=== PATIENT | male | born 1995 ===

== ENCOUNTER 2017-08-19 08:34 | Inpatient (IN) | payer MEDICAID, OTHER ==
--- NOTE | 2017-08-19 08:39 | ED PDOC ---
Psych Transfer Clearance - Clearance Statement Clearance Statement: Reviewed vital signs, lab results and transfer papers. Patient clinically stable for psychiatric admission.
[2017-08-19 08:43] VITALS: BP 116/58; PULSE 93; TEMP 99.5; O2SAT 98
[2017-08-19] MEDS ORDERED: DiphenhydrAMINE 50 mg/ml Inj IM PRN (10:37)
[2017-08-19] MEDS ORDERED: Alum-Mag Hydrox-Simethicone Susp (30 mL) PO PRN (10:37)
[2017-08-19] MEDS ORDERED: Magnesium Hydroxide Susp 30 ml UD PO PRN (10:37)
--- NOTE | 2017-08-19 12:00 | PCM.BM ---
Treatment Plan Problems - Problems identified on initial assessmt Anxiety Date Initiated: 08/19/17 Time Initiated: 11:58 Assessment reference: HP NA Status: Active Priority: 1 Treatment assets and liabiliti Patient Assests: cooperative, educated, motivated, self-reliant, physically healthy, negotiates basic needs, cognitively intact Patient Liabilities: relationship conflicts, other (drinks alcohol few glasses at green party states triggered his anxiety) - Milieu Protocol Maintain good personal hygiene: daily Encourage regular showers, daily Remind patient to perform daily oral care, daily Assist patient to perform ADL's Maintain personal safety: every shift Educate patient to report safety concerns to staff, every shift Monitor environment for contraband/sharps Medication safety: Monitor for expected outcome, potential side effects: every shift, Assess barriers to learning: every shift, Assess readiness for medication education: every shift
[2017-08-19 13:08] VITALS: RESP 18
--- NOTE | 2017-08-19 14:23 | PCM.PSYCH ---
Initial Psychiatric Evaluation - Initial Psychiatric Evaluation Type of Admission: Voluntary Legal Status: Capacity Chief Complaint (in patient's own words): i HAVE BEEN HAVING SEVERE PANIC ATTACKS THAT I COULD NOT FUNCTION Patient's Reaction to Hospitalization: pt requested help History of Present Illness and Precipitating Events: pt without previous formal psychiatric treatment reported has been experiencing panic attacks since age 19. 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 he experienced an episode when he felt he would becuse of a heart attach , he came to ER seeking help pt reported depressed miood denied manic or psychotic symptoms Current Medications: Active Medications Generic Name Dose Route Start Last Admin Trade Name Freq PRN Reason Stop Dose Admin Acetaminophen 650 mg 08/19/17 10:37 Tylenol 325mg Tab PO Q4 PRN Pain, moderate (4-7) Al Hydrox/Mg Hydrox/Simethicone 30 ml 08/19/17 10:37 Maalox Plus 30 Ml PO Q4 PRN Dyspepsia Diphenhydramine HCl 50 mg 08/19/17 10:37 Benadryl IM Q6 PRN Extrapyramidal S/S Unable PO Diphenhydramine HCl 50 mg 08/19/17 10:37 Benadryl PO Q6 PRN Extrapyramidal Symptoms Escitalopram Oxalate 5 mg 08/19/17 10:45 Lexapro PO DAILY VENECIA Haloperidol 5 mg 08/19/17 10:37 Haldol PO Q4 PRN Agitation Haloperidol Lactate 5 mg 08/19/17 10:37 Haldol IM Q4 PRN Agitation, Unable to Take PO Lorazepam 2 mg 08/19/17 10:37 Ativan IM Q4 PRN Anxiety/Agitation,Unable PO Lorazepam 2 mg 08/19/17 10:37 Ativan PO Q4 PRN Anxiety/Agitation Magnesium Hydroxide 30 ml 08/19/17 10:37 Milk Of Magnesia PO HS PRN Constipation Past Psychiatric History - Past Psychiatric History Explanation of prior treatment: no hx of previous psychiatric treatment History of ETOH/Drug Use: denied Pertinent Medical Hx (Current Medical&Sleep Prob, Allergies): Allergies Allergy/AdvReac Type Severity Reaction Status Date / Time No Known Allergies Allergy Verified 08/19/17 08:36 Mental Status Examination - Personal Presentation Personal Presentation: Looks stated age - Affect Affect: Constricted, Depressed - Motor Activity Motor Activity: Psychomotor Retardation - Reliability in Providing Information Reliability in Providing Information: Fair - Speech Speech: Relevant - Mood Mood: Depressed, Anxious - Formal Thought Process Formal Thought Process: Circumstantial - Obsessions/Compulsions Obsessions: No Compulsions: No - Cognitive Functions Orientation: Person, Place, Situation Sensorium: Alert Attention/Concentration: Attentive Estimate of Intelligence: Average - Risk Risk: Diminished functioning - Strength & Assets Inventory Strength & Assets Inventory: Family support - Limitations Additional comments: financial problems DSM 5 DX - DSM 5 DSM 5 Diagnosis: panic disorder generalized anxiety disorder - Recommended/Plan of Treatment Treatment Recommendations and Plan of Treatment: pt will be started on lexapro 5mg daily CBT , supportive therapy Prognosis: fair Discharge Plan and Discharge Criteria: pt mental status stable
== END 2017-08-19 16:10 | disposition home or self-care (01) | DRG 880 ==
LOC: H.ER 08:34 → H.PSYCH 08:39 → H.ER 09:03
PROVIDERS: ADMIT Psychiatry & Neurology Psychiatry; ATTEND Psychiatry & Neurology Psychiatry
PROC: GZ58ZZZ Individual Psychotherapy, Cognitive-Behavioral (ICD-10-PCS; principal; 2017-08-19)
PROC: GZ56ZZZ Individual Psychotherapy, Supportive (ICD-10-PCS; 2017-08-19)
DX: F41.0 Panic disorder [episodic paroxysmal anxiety] (principal); F41.1 Generalized anxiety disorder